=== PATIENT | male | born 1970 | race Caucasian/White ===

== ENCOUNTER 2017-06-15 13:58 | Emergency (ER) | payer BC ==
[~2017-06-15] VITALS: Ht 172.7 cm; Wt 97.5 kg
[2017-06-15 14:00] VITALS: BP_SYST 146
[2017-06-15] MEDS ORDERED: PROMETHAZINE HCL 25 MG/ML AMP IVP ONE (14:45)
[2017-06-15 15:04] LABS: HEMATOCRIT 42.6 % (36-54); HEMOGLOBIN 14.2 g/dL (14.0-18.0); MEAN CORPUSCULAR HEMOGLOBIN 28 pg (27-31); MEAN CORPUSCULAR HGB CONC 33 % (32-36); MEAN CORPUSCULAR VOLUME 84 fL (79.0-98.0); PLATELET COUNT (AUTO) 214 K/uL (130-430); RED BLOOD CELL COUNT(AUTO) 5.09 MIL/uL (4.2-6.2); RED CELL DISTRIBUTION WIDTH 12.5 % (9.0-15.0); WHITE BLOOD COUNT (AUTO) 6.3 K/uL (4.8-10.8)
[2017-06-15 15:08] LABS: ALANINE AMINOTRANSFERASE 37 U/L (12-78); ALBUMIN 3.9 g/dL (3.4-4.8); ANION GAP 5 (5-15); ASPARTATE AMINOTRANSFERASE 46 U/L (10-37); CALCIUM 9.1 mg/dL (8.4-11.0); CHLORIDE 100 mmol/L (98-107); CREATININE 0.71 mg/dL (0.55-1.30); GLUCOSE 119 mg/dL (70-99); POTASSIUM 5.7 mmol/L (3.5-5.1); SODIUM SERUM 132 mmol/L (136-145); TOTAL BILIRUBIN 0.9 mg/dL (0.0-1.0); UREA NITROGEN, BLOOD 13 mg/dL (8-21)
[2017-06-15 15:09] LABS: GFR AFRICAN AMERICAN 154 mL/min (>90)
[2017-06-15 15:10] LABS: ALCOHOL, BLOOD < 3 mg/dL (<10)
[2017-06-15 15:26] LABS: BASOPHILS % (MANUAL) 0 % (0-2); EOSINOPHILS % (MANUAL) 5 % (0-7); LYMPHOCYTES % (MANUAL) 30 % (20-46); MONOCYTES % (MANUAL) 6 % (0-11)
[2017-06-15 16:25] VITALS: BP_SYST 134
== END 2017-06-15 16:25 | disposition home or self-care (01) ==
LOC: SED 13:58
DX: R42 Dizziness and giddiness (principal); R03.0 Elevated blood-pressure reading, without diagnosis of hypertension
CPT/HCPCS: 36415; 70450; 80053; 84484; 85007; 85027; 93005; 96374; 99285; G0482; J2550